=== PATIENT | female | born 1940 | race Caucasian/White ===

== ENCOUNTER 2017-11-09 14:09 | Inpatient (IN) | payer OTHER, MEDICARE ==
[~2017-11-09] VITALS: Ht 160 cm; Wt 113.5 kg
[2017-11-09] MEDS ORDERED: SODIUM CHLORIDE FLUSH 10ML SYR IVF ONE (14:30)
[2017-11-09 14:53] LABS: BASOPHILS # (AUTO) 0.05 x10^3/uL (0-0.1); BASOPHILS % (AUTO) 1 % (0-1); EOSINOPHILS # (AUTO) 0.08 x10^3/uL (0-0.4); EOSINOPHILS % (AUTO) 1 % (1-7); LYMPHOCYTES # (AUTO) 1.01 x10^3/uL (1-3.4); LYMPHOCYTES % (AUTO) 13 % (22-44); MD NO; MEAN CORPUSCULAR HEMOGLOBIN 28.9 pg (27.0-34.8); MEAN CORPUSCULAR HGB CONC 32.6 g/dL (32.4-35.8); MEAN CORPUSCULAR VOLUME 88.5 fL (80-100); MEAN PLATELET VOLUME 8.1 fL (7.4-10.4); MONOCYTES # (AUTO) 0.47 x10^3/uL (0.2-0.8); MONOCYTES % (AUTO) 6 % (2-9); NEUTROPHILS # (AUTO) 6.16 x10^3/uL (1.8-6.8); NEUTROPHILS % (AUTO) 79 % (42-75); PLATELET COUNT 299 x10^3/uL (130-400); RED BLOOD COUNT 4.35 x10^6/uL (3.82-5.3); RED CELL DISTRIBUTION WIDTH 15.8 % (9.6-15.2)
[2017-11-09] MEDS ORDERED: DILTIAZEM 125 MG in DEXTROSE 5% 100 ML IV SCH (14:54)
[2017-11-09] MEDS ORDERED: ASPIRIN 81 MG TABLET CHEW PO ONE (15:00)
[2017-11-09] MEDS ORDERED: DILTIAZEM 5 MG/ML, 5ML IV ONE ×2 (15:00→16:00)
[2017-11-09 15:05] LABS: ALANINE AMINOTRANSFERASE 42 U/L (12-78); ALBUMIN 3.6 g/dL (3.4-5.0); ANION GAP 8 mmol/L (5-15); CALCIUM 9.3 mg/dL (8.5-10.1); CHLORIDE 109 mmol/L (98-107); CREATININE 0.95 mg/dL (0.55-1.02)
[2017-11-09 15:09] LABS: ALKALINE PHOSPHATASE 41 U/L (45-117); BILIRUBIN,TOTAL 0.4 mg/dL (0.2-1.0); TOTAL PROTEIN 7.2 g/dL (6.4-8.2); TROPONIN I < 0.015 ng/mL (0.000-0.045)
[2017-11-09] MEDS ORDERED: ASPIRIN 81 MG TABLET CHEW ONE (15:11)
[2017-11-09] MEDS ORDERED: DILTIAZEM 5 MG/ML, 5ML ONE ×2 (15:11→15:42)
[2017-11-09 15:18] LABS: INTERNATIONAL NORMALIZED RATIO 1.04 (0.93-1.1); PROTHROMBIN TIME 10.7 Seconds (9.6-11.5)
[2017-11-09] MEDS ORDERED: NITROGLYCERIN OINT 2%, 1GM TP ONE ×2 (15:30→15:38)
[2017-11-09] MEDS ORDERED: METFORMIN (15:30)
[2017-11-09] MEDS ORDERED: CHOLESTEROL MED (15:31)
[2017-11-09] MEDS ORDERED: BLOOD PRESSURE MED (15:31)
[2017-11-09] MEDS ORDERED: FUROSEMIDE 20 MG/2 ML ONE (15:39)
[2017-11-09] MEDS ORDERED: FUROSEMIDE 40 MG/4 ML IV ONE ×2 (16:00→21:00)
[2017-11-09] MEDS ORDERED: METOPROLOL 1 MG/ML, 5ML IVPush PRN (16:30)
[2017-11-09] MEDS ORDERED: METOPROLOL 1 MG/ML, 5ML ONE (16:41)
[2017-11-09] MEDS ORDERED: ENOXAPARIN 100 MG/ML SQ ONE (17:00)
[2017-11-09] MEDS ORDERED: DIGOXIN 0.25 MG/ML, 2ML IVPush ONE (17:00)
[2017-11-09] MEDS ORDERED: DIGOXIN 0.25 MG/ML, 2ML ONE (17:13)
[2017-11-09] MEDS ORDERED: NITROGLYCERIN 0.4 MG BOTTLE (25 TABS) SL PRN (18:00)
[2017-11-09] MEDS ORDERED: ACETAMINOPHEN 325 MG TABLET PO PRN (18:00)
[2017-11-09 18:06] LABS: FREE T4 (FREE THYROXINE) 1.34 ng/dL (0.76-1.46)
[2017-11-09] MEDS ORDERED: AMLO1CAP15 PO (18:29)
[2017-11-09] MEDS ORDERED: ATEN25TA PO (18:29)
[2017-11-09] MEDS ORDERED: FENO135C4 PO (18:29)
[2017-11-09] MEDS ORDERED: METF500T5 PO (18:29)
[2017-11-09] MEDS ORDERED: ATOR-2 PO (18:29)
[2017-11-09] MEDS ORDERED: EXEN2PEN SQ (18:29)
[2017-11-09] MEDS: INSULIN LISPRO 100 UNITS/ML, PEN SQ-INSULIN SCH ×2 (18:35→21:53)
[2017-11-09 18:46] VITALS: BP 144/88
[2017-11-09 18:50] LABS: HEMOGLOBIN A1C 6.5 % (4.2-6.3)
[2017-11-09 19:57] LABS: TROPONIN I < 0.015 ng/mL (0.000-0.045)
[2017-11-09] MEDS: DIGOXIN 0.25 MG/ML, 2ML IVPush SCH (20:07)
[2017-11-09] MEDS: ATORVASTATIN 80 MG TABLET PO SCH (21:53)
[2017-11-10] VITALS (10 sets, daily range): BP systolic 95–138; BP diastolic 65–84
[2017-11-10] MEDS ORDERED: MAGNESIUM SULFATE PMX 4GM/100M 100 ML IV ONE (00:30)
[2017-11-10] MEDS ORDERED: MAGNESIUM SULFATE IN WATER 50 ML IV ONE (00:30)
[2017-11-10] MEDS: DIGOXIN 0.25 MG/ML, 2ML IVPush SCH (01:23)
[2017-11-10 02:13] LABS: BASOPHILS # (AUTO) 0.03 x10^3/uL (0-0.1); BASOPHILS % (AUTO) 0 % (0-1); EOSINOPHILS # (AUTO) 0.15 x10^3/uL (0-0.4); EOSINOPHILS % (AUTO) 2 % (1-7); LYMPHOCYTES # (AUTO) 1.14 x10^3/uL (1-3.4); LYMPHOCYTES % (AUTO) 15 % (22-44); MD NO; MEAN CORPUSCULAR HEMOGLOBIN 28.3 pg (27.0-34.8); MEAN CORPUSCULAR HGB CONC 32.4 g/dL (32.4-35.8); MEAN CORPUSCULAR VOLUME 87.4 fL (80-100); MEAN PLATELET VOLUME 8.2 fL (7.4-10.4); MONOCYTES # (AUTO) 0.45 x10^3/uL (0.2-0.8); MONOCYTES % (AUTO) 6 % (2-9); NEUTROPHILS # (AUTO) 5.72 x10^3/uL (1.8-6.8); NEUTROPHILS % (AUTO) 76 % (42-75); PLATELET COUNT 285 x10^3/uL (130-400); RED BLOOD COUNT 4.45 x10^6/uL (3.82-5.3); RED CELL DISTRIBUTION WIDTH 16.1 % (9.6-15.2)
[2017-11-10 02:26] LABS: ALANINE AMINOTRANSFERASE 40 U/L (12-78); ALBUMIN 3.5 g/dL (3.4-5.0); ANION GAP 8 mmol/L (5-15); CALCIUM 9.8 mg/dL (8.5-10.1); CHLORIDE 104 mmol/L (98-107); CREATININE 1.04 mg/dL (0.55-1.02)
[2017-11-10 02:28] LABS: TROPONIN I < 0.015 ng/mL (0.000-0.045)
[2017-11-10 02:42] LABS: ALKALINE PHOSPHATASE 42 U/L (45-117); BILIRUBIN,TOTAL 0.5 mg/dL (0.2-1.0); TOTAL PROTEIN 7.2 g/dL (6.4-8.2)
[2017-11-10] MEDS: INSULIN LISPRO 100 UNITS/ML, PEN SQ-INSULIN SCH ×4 (07:30→21:07)
[2017-11-10] MEDS: ASPIRIN 81 MG TABLET CHEW PO SCH (07:46)
[2017-11-10] MEDS ORDERED: DILTIAZEM 5 MG/ML, 5ML IVPush STA (10:17)
[2017-11-10] MEDS ORDERED: METOPROLOL TARTRATE 25 MG TABLET PO SCH (10:30)
[2017-11-10] MEDS: APIXABAN 5 MG TABLET PO SCH ×2 (10:40→21:07)
[2017-11-10] MEDS: DILTIAZEM 125 MG in DEXTROSE 5% 100 ML IV SCH (14:33)
[2017-11-10] MEDS ORDERED: DILTIAZEM 125 MG in DEXTROSE 5% 100 ML IV SCH (14:54)
[2017-11-10] MEDS: METOPROLOL TARTRATE 25 MG TABLET PO SCH (17:49)
[2017-11-10] MEDS: ATORVASTATIN 80 MG TABLET PO SCH (21:07)
[2017-11-11] VITALS (12 sets, daily range): BP systolic 99–151; BP diastolic 63–94
[2017-11-11] MEDS: METOPROLOL TARTRATE 25 MG TABLET PO SCH ×5 (00:25→23:48)
[2017-11-11] MEDS: DILTIAZEM 125 MG in DEXTROSE 5% 100 ML IV SCH (03:00)
[2017-11-11 05:32] LABS: ANION GAP 6 mmol/L (5-15); CALCIUM 9.3 mg/dL (8.5-10.1); CHLORIDE 106 mmol/L (98-107)
[2017-11-11 05:35] LABS: CREATININE 0.92 mg/dL (0.55-1.02)
[2017-11-11] MEDS: INSULIN LISPRO 100 UNITS/ML, PEN SQ-INSULIN SCH ×4 (07:50→21:13)
[2017-11-11] MEDS: APIXABAN 5 MG TABLET PO SCH ×2 (07:52→21:13)
[2017-11-11] MEDS: ASPIRIN 81 MG TABLET CHEW PO SCH (07:52)
[2017-11-11] MEDS ORDERED: DILTIAZEM 60 MG TABLET PO SCH (09:00)
[2017-11-11] MEDS ORDERED: DILTIAZEM 30 MG TABLET ONE ×2 (09:14→16:44)
[2017-11-11] MEDS: DILTIAZEM 60 MG TABLET PO SCH ×2 (16:44→22:31)
[2017-11-11] MEDS: ATORVASTATIN 80 MG TABLET PO SCH (21:13)
[2017-11-11] MEDS ORDERED: OMNIPAQUE 350 MG/ML, 100ML BOTTLE ONE (22:03)
[2017-11-12 01:37] VITALS: BP 123/79
[2017-11-12 05:41] VITALS: BP 121/86
[2017-11-12] MEDS: METOPROLOL TARTRATE 25 MG TABLET PO SCH ×2 (05:48→11:39)
[2017-11-12] MEDS: INSULIN LISPRO 100 UNITS/ML, PEN SQ-INSULIN SCH ×2 (07:00→11:00)
[2017-11-12] MEDS: DILTIAZEM 60 MG TABLET PO SCH (08:11)
[2017-11-12] MEDS: ASPIRIN 81 MG TABLET CHEW PO SCH (08:11)
[2017-11-12 08:47] VITALS: BP 115/78
[2017-11-12] MEDS ORDERED: METO25TA35 PO (11:20)
[2017-11-12] MEDS ORDERED: ASPI-515 PO (11:20)
[2017-11-12] MEDS ORDERED: DILT60TA27 PO (11:20)
[2017-11-12] MEDS ORDERED: APIX5TAB PO (11:20)
[2017-11-12] MEDS: APIXABAN 5 MG TABLET PO SCH (11:37)
== END 2017-11-12 12:27 | disposition home or self-care (01) | DRG 291 ==
LOC: ED 16:00 → EDIP 16:53 → 5SO 17:48 → DCLOUNGE 11-12 11:58
PROVIDERS: ADMIT Internal Medicine; ATTEND Internal Medicine
DX: I11.0 Hypertensive heart disease with heart failure (principal); J96.01 Acute respiratory failure with hypoxia; D68.59 Other primary thrombophilia; Z68.41 Body mass index [BMI] 40.0-44.9, adult; I48.91 Unspecified atrial fibrillation; I50.31 Acute diastolic (congestive) heart failure; E11.9 Type 2 diabetes mellitus without complications; E66.9 Obesity, unspecified; E78.5 Hyperlipidemia, unspecified; Z79.899 Other long term (current) drug therapy; Z79.82 Long term (current) use of aspirin; Z79.01 Long term (current) use of anticoagulants; K59.00 Constipation, unspecified; I34.0 Nonrheumatic mitral (valve) insufficiency; Z85.828 Personal history of other malignant neoplasm of skin; Z86.011 Personal history of benign neoplasm of the brain; Z87.891 Personal history of nicotine dependence; Z95.0 Presence of cardiac pacemaker
CPT/HCPCS: 36415; 71045; 71275; 80048; 80053; 80162; 82962; 83036; 83735; 83880; 84439; 84443; 84484; 85025; 85610; 85730; 93005; 93306; 96365; 96368; 96372; 96375; J1650; J1940; Q9967; J1160